=== PATIENT | female | born 1955 | race Caucasian/White ===

== ENCOUNTER 2019-08-24 08:53 | Outpatient (CLI) | payer MEDICARE, OTHER ==
--- NOTE | 2019-08-24 09:50 | ULT ---
RENAL ULTRASOUND: COMPARISON: None. HISTORY: Chronic kidney disease. TECHNIQUE: Multiplanar, smith scale, and color Doppler images were obtained in a renal ultrasound. FINDINGS: The kidneys were normal in echogenicity without hydronephrosis or calculi and measure 10.3 and 10.5 c m in length on the right and left, respectively. Limited visualization of the urinary bladder is unr emarkable. The liver is increased in echogenicity consistent with fatty infiltration. IMPRESSION: 1. No significant renal abnormality. 2. Fatty liver. POS: CET
== END 2019-08-24 08:54 | disposition home or self-care (01) ==
LOC: BICULT 08:53
PROVIDERS: ATTEND Internal Medicine Nephrology
DX: N18.2 Chronic kidney disease, stage 2 (mild) (principal); K76.0 Fatty (change of) liver, not elsewhere classified
CPT/HCPCS: 76770

== ENCOUNTER 2020-05-26 09:26 | Outpatient (CLI) | payer MEDICARE, OTHER ==
--- NOTE | 2020-05-26 09:58 | MMO ---
Bilateral MAMMO Bilat Screen [facility]. CLINICAL HISTORY: Patient is 64 years old and is seen for screening. The patient has no family history of breast cancer. The patient has no personal history of cancer. The patient has a history of left Excisional Biopsy - benign. VIEWS: The views performed were: bilateral craniocaudal with tomosynthesis and bilateral mediolateral oblique with tomosynthesis. FILMS COMPARED: The present examination has been compared to prior imaging studies performed at [facility] on 11/28/2016, and at [facility] on 11/11/2013. This study has been interpreted with the assistance of computer-aided detection. MAMMOGRAM FINDINGS: There are scattered fibroglandular densities. There are no suspicious masses, suspicious calcifications, or new areas of architectural distortion. IMPRESSION: THERE IS NO MAMMOGRAPHIC EVIDENCE OF MALIGNANCY. A ROUTINE FOLLOW-UP MAMMOGRAM IN 1 YEAR IS RECOMMENDED. THE RESULTS OF THIS EXAM WERE SENT TO THE PATIENT. ACR BI-RADS Category 1 - Negative MAMMOGRAPHY NOTE: 1. A negative mammogram report should not delay a biopsy if a dominant of clinically suspicious mass is present. 2. Approximately 10% to 15% of breast cancers are not detected by mammography. 3. Adenosis and dense breasts may obscure an underlying neoplasm. Reported by: RAMSES BUCKNER MD Electonically Signed: [id number]
== END 2020-05-26 09:27 | disposition home or self-care (01) ==
LOC: BICMAMMO 09:26
PROVIDERS: ATTEND Family Medicine
DX: Z12.31 Encounter for screening mammogram for malignant neoplasm of breast (principal); Z91.89 Other specified personal risk factors, not elsewhere classified
CPT/HCPCS: 77063; 77067

== ENCOUNTER 2022-03-22 08:52 | Outpatient (CLI) | payer MEDICARE, OTHER | END 2022-03-22 08:53 | disposition home or self-care (01) | LOC: BICMAMMO 08:52 | PROVIDERS: ATTEND Family Medicine | DX: Z12.31 Encounter for screening mammogram for malignant neoplasm of breast (principal); Z91.89 Other specified personal risk factors, not elsewhere classified | CPT/HCPCS: 77063; 77067 ==